=== PATIENT | male | born 1995 | race African-American/Black ===

== ENCOUNTER 2019-06-04 10:41 | Emergency (ER) | payer MEDICAID, OTHER ==
[~2019-06-04] VITALS: Ht 175.3 cm; Wt 76.2 kg
[2019-06-04 11:41] VITALS: BP 129/68
[2019-06-04] MEDS ORDERED: cefTRIAXone SOD 1,000 MG VL IM ONE (12:15)
== END 2019-06-04 12:43 | disposition home or self-care (01) ==
LOC: ER 10:47
DX: J03.90 Acute tonsillitis, unspecified (principal); F17.210 Nicotine dependence, cigarettes, uncomplicated
CPT/HCPCS: 96372; 99283; J0696